=== PATIENT | male | born 1945 | race Caucasian/White ===

== ENCOUNTER → 2016-08-27 | Day surgery (SDC) | payer MEDICARE ==
[~2016-08-27] MED LIST: LISINOPRIL10 MG PO; MULTI-DAY VITA1 EACH; PROPAFENONE HC225 MG PO; SAW PALMETTO450 MG PO; SIMVASTATIN40 MG PO; TOPROL XL50 MG PO; XARELTO20 MG PO; ZESTRIL40 MG PO
--- NOTE | ~2016-08-27 | OR ---
Unit #: [id number] #: [id number] Patient: JONATHON ROCK [id number] [address] [place], [place] [address] [id number] O MR#: [id number] NAME: JONATHON ROCK ROOM: Date of Procedure: 08/27/2016 Admission Date: 08/27/2016 Surgeon: Renato Villegas M.D. : 1945 Attending Physician: Renato Villegas M.D. Primary Care Physician: Naren Pierce M.D. OPERATIVE REPORT PREOPERATIVE DIAGNOSES Colorectal cancer surveillance. The patient has a family history of colon cancer in his mother. PROCEDURE PERFORMED Colonoscopy up to cecum with good prep and visualization. POSTOPERATIVE DIAGNOSES Scant sigmoid diverticulosis, otherwise normal examination up to cecum. The quality of the prep was excellent. No polyps were present. RECOMMENDATIONS Repeat colonoscopy in 5 years. SEDATION USED MAC. DESCRIPTION OF PROCEDURE Following detailed explanation of the potential risks and complications of a colonoscopy, namely perforation, bleeding, and complications related to sedation, the patient was brought to GI lab and laid in the left lateral decubitus position. A digital rectal examination was performed, which was normal. Lubricated tip of the Olympus video colonoscope was inserted through the anus and advanced under direct vision. The scope was advanced and passed up to sigmoid into descending colon. Scant small diverticula were noted in this area. The scope tip was then navigated all the way up to cecum with visualization of the ileocecal valve and the appendiceal orifice. Preparation was excellent with good visualization and photodocumentation was obtained. Last several inches of the terminal ileum also visualized after intubation of the ileocecal valve and appeared normal. Successive segments of the colonic mucosa were examined upon withdrawal and appeared unremarkable. There being no polyps, mass lesions, or AVMs. Other than the scant diverticula, no other abnormalities noted. The patient did not have any hemorrhoids at the anal verge. The scope was then withdrawn. The patient returned to the recovery area. He tolerated the procedure without any postprocedure complications. Dictated by... Renato Villegas M.D. Unit #: [id number] #: [id number] Patient: JONATHON ROCK MIRANDA/delroy TD: 08/27/2016 11:46 JOB #: [id number] OPERATIVE REPORT Page 1 of 1 X Renato Villegas MD PROCEDURE OPERATIVE NOTE
== END | disposition home or self-care (01) ==
LOC: COPS 08:06
DX: Z12.11 Encounter for screening for malignant neoplasm of colon (principal); K57.30 Diverticulosis of large intestine without perforation or abscess without bleeding; I10 Essential (primary) hypertension; N40.0 Benign prostatic hyperplasia without lower urinary tract symptoms; I48.91 Unspecified atrial fibrillation; M19.90 Unspecified osteoarthritis, unspecified site; F17.210 Nicotine dependence, cigarettes, uncomplicated; Z80.0 Family history of malignant neoplasm of digestive organs; Z79.01 Long term (current) use of anticoagulants; Z79.899 Other long term (current) drug therapy; Z96.652 Presence of left artificial knee joint; Z90.49 Acquired absence of other specified parts of digestive tract; Z98.890 Other specified postprocedural states
CPT/HCPCS: J2250